=== PATIENT | female | born 2000 | race Caucasian/White ===

== ENCOUNTER 2022-04-23 08:17 | Emergency (ER) | payer SELFPAY ==
[2022-04-23] MEDS ORDERED: Ibuprofen 600 MG Tab PO ONE (08:35)
[2022-04-23 09:19] LABS: CORONAVIRUS COVID-19 NAA NEGATIVE (NEGATIVE); INFLUENZA A NAA POSITIVE (NEGATIVE); INFLUENZA B NAA NEGATIVE (NEGATIVE)
== END 2022-04-23 09:38 | disposition home or self-care (01) ==
LOC: MW.ED 08:17
DX: J10.1 Influenza due to other identified influenza virus with other respiratory manifestations (principal); Z20.822 Contact with and (suspected) exposure to COVID-19
CPT/HCPCS: 0240U; 87651; 99283; A9270